=== PATIENT | male | born 1980 ===

== ENCOUNTER 2017-06-20 18:21 | Emergency (ER) | payer OTHER ==
[2017-06-20 19:07] VITALS: BP 121/74
--- NOTE | 2017-06-20 19:40 | UC ---
Complaint Male HPI - HPI Summary HPI Summary: 37 male with dysuria x 5 today When he voided here it was normal no urethral d/c no back pain no f/c no n/v/d - History of Current Complaint Chief Complaint: UCGU Stated Complaint: URINARY Time Seen by Provider: 06/20/17 19:14 Hx Obtained From: Patient Onset/Duration: Sudden Onset, Lasting Minutes Timing: Intermittent Severity Initially: Mild Severity Currently: None Pain Intensity: 3 Pain Scale Used: 0-10 Numeric Location: Penis Aggravating Factor(s): Voiding Associated Signs And Symptoms: Positive: Dysuria - Allergies/Home Medications Allergies/Adverse Reactions: Allergies Allergy/AdvReac Type Severity Reaction Status Date / Time Amoxicillin Allergy Unknown Verified 06/20/17 19:06 Reaction Details Penicillins Allergy Unknown Verified 06/20/17 19:06 Reaction Details PMH/Surg Hx/FS Hx/Imm Hx Previously Healthy: Yes - Surgical History Surgical History: Yes Surgery Procedure, Year, and Place: inguinal henia right side repair - Family History Known Family History: Positive: Hypertension, Other - dad has had prostatis - Social History Alcohol Use: Rare Substance Use Type: None Smoking Status (MU): Never Smoked Tobacco - Immunization History Most Recent Influenza Vaccination: no Review of Systems Constitutional: Negative Skin: Negative Eyes: Negative ENT: Negative Respiratory: Negative Cardiovascular: Negative Gastrointestinal: Negative Genitourinary: Dysuria Motor: Negative Neurovascular: Negative Musculoskeletal: Negative Neurological: Negative Psychological: Negative Is Patient Immunocompromised?: No All Other Systems Reviewed And Are Negative: Yes Physical Exam Triage Information Reviewed: Yes Appearance: Well-Appearing, No Pain Distress, Well-Nourished Vital Signs: Initial Vital Signs Temp 99.3 F 06/20/17 19:02 Pulse 104 06/20/17 19:02 Resp 16 06/20/17 19:02 BP 121/74 06/20/17 19:02 Pulse Ox 98 06/20/17 19:02 Vital Signs Reviewed: Yes Eyes: Positive: Conjunctiva Clear ENT: Positive: Hearing grossly normal. Negative: Nasal congestion, Nasal drainage, Tonsillar exudate, Trismus, Muffled/hoarse voice Neck: Positive: Supple, Nontender, No Lymphadenopathy Respiratory: Positive: Lungs clear, Normal breath sounds, No respiratory distress, No accessory muscle use Cardiovascular: Positive: RRR Abdomen Description: Positive: Nontender, No Organomegaly, Other: - circ/no d/c , no lesions. Negative: CVA Tenderness (R), CVA Tenderness (L), McBurney's Point Tenderness, Peritoneal Signs, Pulsatile Mass Musculoskeletal: Positive: ROM Intact, No Edema Neurological: Positive: Alert Psychological Exam: Normal Skin Exam: Normal Complaint Male Course/Dx - Differential Dx/Diagnosis Provider Diagnoses: dysuria, resolved of uncertain cause Discharge - Discharge Plan Condition: Stable Disposition: HOME Patient Education Materials: Dysuria (ED) Referrals: Jono Grant MD [Primary Care Provider] - 2 Days (if not better) Additional Instructions: urine culture pending
== END 2017-06-20 19:42 | disposition home or self-care (01) ==
LOC: UCCORT 18:21
DX: R30.0 Dysuria (principal); Z88.0 Allergy status to penicillin
CPT/HCPCS: 81003; 87086; 99211; G0463